=== PATIENT | male | born 1990 | race Caucasian/White ===

== ENCOUNTER 2023-07-18 23:19 | Emergency (ER) | payer MEDICAID | END 2023-07-19 01:15 | disposition home or self-care (01) | LOC: FB.ED 23:19 | DX: S93.411A Sprain of calcaneofibular ligament of right ankle, initial encounter (principal); X58.XXXA Exposure to other specified factors, initial encounter | CPT/HCPCS: 73610-RT; 99283 ==

== ENCOUNTER 2023-07-31 17:40 | Emergency (ER) | payer MEDICARE, MEDICAID ==
[2023-07-31] MEDS ORDERED: Acetaminophen/oxyCODONE 325-5 MG Tab PO ONE (17:41)
[2023-07-31] MEDS ORDERED: Ketorolac 30 MG/ML SDV IM ONE (18:26)
[2023-07-31] MEDS ORDERED: Cyclobenzaprine 10 MG Tab PO ONE (18:26)
[2023-07-31] MEDS ORDERED: Acetaminophen/HYDROcodone 325-5 MG Tab PO ONE (18:27)
[2023-07-31] MEDS ORDERED: Morphine 4 MG/ML VIAL IM ONE (19:21)
== END 2023-07-31 20:40 | disposition home or self-care (01) ==
LOC: FB.ED 17:40
DX: S39.012A Strain of muscle, fascia and tendon of lower back, initial encounter (principal); Z88.8 Allergy status to other drugs, medicaments and biological substances; Z79.899 Other long term (current) drug therapy
CPT/HCPCS: 72131; 96372; 99283; A9270; J1885; J2270

== ENCOUNTER 2024-01-10 17:15 | Emergency (ER) | payer MEDICARE, MEDICAID ==
[2024-01-10] MEDS: Sodium Chloride 0.9% 10 ML Syringe FLUSH PRN (17:44)
[2024-01-10] MEDS: Sodium Chloride 0.9% 1,000 ML IV ONE ×3 (17:44→21:46)
[2024-01-10 17:56] LABS: BLOOD UREA NITROGEN,BUN 15 mg/dL (7-18); CALCIUM 8.9 mg/dL (8.6-10.2); CARBON DIOXIDE,CO2 28 mmol/L (21-32); CHLORIDE,CL 100 mmol/L (100-110); ESTIMATED GFR 103 mL/min (>60); GLUCOSE RANDOM 127 mg/dL (80-116); HEMOGLOBIN 15.6 g/dL (12.9-17.7); POTASSIUM,K 3.4 mmol/L (3.5-5.3); SODIUM,NA 138 mmol/L (135-145)
[2024-01-10 17:56] LABS: BASE EXCESS VENOUS,POC 2 mmol/L (-2 - 3+); PCO2 VENOUS,POC 41 mmHg (41-51); PH VENOUS,POC 7.41 pH Units (7.32-7.43)
[2024-01-10 17:59] LABS: HEMATOCRIT 43.8 % (38.3-50.1); MEAN CORPUSCULAR HEMOGLOBIN 31.9 pg (27.0-33.3); MEAN CORPUSCULAR HGB CONC 35.6 g/dL (28.7-35.3); MEAN CORPUSCULAR VOLUME 89.6 fL (80.8-98.7); PLATELET COUNT,PLT 362 x10(3)uL (117-477); RED BLOOD CELL COUNT 4.89 x10(6)uL (3.90-5.90); RED CELL DISTRIBUTION WIDTH 12.8 % (12.4-15.0); WHITE BLOOD CELL COUNT,WBC 10.4 x10-3/uL (3.2-10.1)
[2024-01-10 18:03] LABS: A/G RATIO 0.9; ALANINE AMINOTRANSFERASE,ALT 18 U/L (12-36); ALBUMIN 3.5 g/dL (3.5-5.2); ALKALINE PHOSPHATASE 77 IU/L (56-112); ASPARTATE AMNIOTRANSFERASE,AST 10 IU/L (5-25); BILIRUBIN TOTAL 0.5 mg/dL (0.1-1.3); MAGNESIUM 1.9 mg/dL (1.8-2.5); PROTEIN TOTAL,TP 7.4 g/dL (6.0-8.0); SALICYLATE 2.8 mg/dL (<2.8)
[2024-01-10 18:11] LABS: C-REACTIVE PROTEIN < 0.50 mg/dL (<0.50); ETHANOL BLOOD MEDICAL < 0.03 % (<0.03); TSH ULTRASENSITIVE 2.37 IU/mL (0.36-3.74)
[2024-01-10 18:13] LABS: EOSINOPHILS PERCENT MAN 1 % (0-5); LYMPHOCYTES PERCENT MAN 25 % (13-37); MONOCYTES PERCENT MAN 8 % (4-12); SEG NEUTROPHILS PERCENT MAN 66 % (46-82)
[2024-01-10 18:16] LABS: ACETAMINOPHEN < 2 ug/mL (<2)
[2024-01-10 19:47] LABS: BILIRUBIN,URINE NEGATIVE (NEGATIVE); GLUCOSE,URINE NORMAL (NORMAL); KETONES,URINE NEGATIVE (NEGATIVE); LEUKOCYTE ESTERASE,URINE NEGATIVE (NEGATIVE); NITRITE,URINE NEGATIVE (NEGATIVE); OCCULT BLOOD,URINE NEGATIVE (NEGATIVE); PH,URINE 6.5 (5.0-6.5); PROTEIN,URINE NEGATIVE (NEGATIVE); UROBILINOGEN,URINE NORMAL (NEGATIVE)
[2024-01-10 19:51] LABS: APPEARANCE,URINE CLEAR (CLEAR); BACTERIA,URINE RARE (NS); COLOR,URINE YELLOW (YELLOW); RBC,URINE NOT SEEN (0-5); SQUAMOUS EPITHELIAL CELLS,UR RARE (NS,R,O); WBC,URINE 0-5 (0-5)
[2024-01-10 19:53] LABS: AMPHETAMINES SCREEN, URINE NEGATIVE (NEGATIVE); BARBITURATE SCREEN,URINE NEGATIVE (NEGATIVE); BENZODIAZEPINES SCREEN,URINE POSITIVE (NEGATIVE); METHADONE SCREEN, URINE NEGATIVE (NEGATIVE); METHAMPHETAMINE SCREEN, URINE NEGATIVE (NEGATIVE); OXYCODONE SCREEN,URINE NEGATIVE (NEGATIVE); THC SCREEN,URINE POSITIVE (NEGATIVE)
[2024-01-10 19:54] LABS: BUPRENORPHINE SCREEN,URINE NEGATIVE (NEGATIVE)
== END 2024-01-10 22:52 | disposition home or self-care (01) ==
LOC: FB.ED 17:15
DX: T42.4X1A Poisoning by benzodiazepines, accidental (unintentional), initial encounter (principal); R40.4 Transient alteration of awareness; E86.0 Dehydration; F17.200 Nicotine dependence, unspecified, uncomplicated; Z88.8 Allergy status to other drugs, medicaments and biological substances
CPT/HCPCS: 36415; 80053; 80143; 80179; 80307; 81001; 83605; 83735; 84443; 85025; 86140; 96360; 96361; 99284-25; J3490; J7030

== ENCOUNTER 2024-05-19 12:29 | Emergency (ER) | payer MEDICARE, MEDICAID ==
[2024-05-19] MEDS: Aspirin 81 MG Tab.Chew PO ONE (13:04)
[2024-05-19 13:21] LABS: BASOPHILS ABSOLUTE AUTO 0.1 x10-3/uL (0.0-0.3); BASOPHILS PERCENT AUTO 1.4 % (0.3-3.8); EOSINOPHILS ABSOLUTE AUTO 0.1 x10-3/uL (0.0-0.6); EOSINOPHILS PERCENT AUTO 0.7 % (0.1-6.8); HEMATOCRIT 45.2 % (38.3-50.1); HEMOGLOBIN 15.3 g/dL (12.9-17.7); LYMPHOCYTES ABSOLUTE AUTO 2.2 x10-3/uL (0.5-4.5); LYMPHOCYTES PERCENT AUTO 24.6 % (15.8-45.3); MEAN CORPUSCULAR HGB CONC 33.9 g/dL (28.7-35.3); MEAN CORPUSCULAR VOLUME 91.4 fL (80.8-98.7); MONOCYTES ABSOLUTE AUTO 0.6 x10-3/uL (0.0-1.2); MONOCYTES PERCENT AUTO 6.3 % (5.5-15.2); NEUTROPHILS ABSOLUTE AUTO 5.9 x10-3/uL (1.7-6.9); PLATELET COUNT,PLT 271 x10(3)uL (117-477); RED BLOOD CELL COUNT 4.95 x10(6)uL (3.90-5.90); WHITE BLOOD CELL COUNT,WBC 8.8 x10-3/uL (3.2-10.1)
[2024-05-19 13:23] LABS: BLOOD UREA NITROGEN,BUN 13 mg/dL (7-18); CALCIUM 9.3 mg/dL (8.6-10.2); CARBON DIOXIDE,CO2 30 mmol/L (21-32); CHLORIDE,CL 103 mmol/L (100-110); ESTIMATED GFR 103 mL/min (>60); GLUCOSE RANDOM 93 mg/dL (80-116); POTASSIUM,K 4.2 mmol/L (3.5-5.3); SODIUM,NA 142 mmol/L (135-145)
[2024-05-19 13:29] LABS: ALANINE AMINOTRANSFERASE,ALT 21 U/L (12-36); ALBUMIN 3.9 g/dL (3.5-5.2); ALKALINE PHOSPHATASE 75 IU/L (56-112); ASPARTATE AMNIOTRANSFERASE,AST 20 IU/L (5-25); BILIRUBIN TOTAL 0.5 mg/dL (0.1-1.3); PROTEIN TOTAL,TP 7.8 g/dL (6.0-8.0)
[2024-05-19 13:36] LABS: PRO B-TYPE NATRIUR PEPT,BNPPRO 40 pg/mL (<=125)
[2024-05-19 14:10] LABS: TROPONIN I < 4.0 pg/mL (4.0-60.3)
[2024-05-19] MEDS: Acetaminophen 500 MG Tab PO ONE (14:27)
[2024-05-19] MEDS: Ibuprofen 400 MG Tab PO ONE (14:28)
== END 2024-05-19 14:40 | disposition home or self-care (01) ==
LOC: FB.ED 12:29
DX: R07.9 Chest pain, unspecified (principal); R06.00 Dyspnea, unspecified; F17.210 Nicotine dependence, cigarettes, uncomplicated; Z88.8 Allergy status to other drugs, medicaments and biological substances
CPT/HCPCS: 36415; 71045; 80053; 83880; 84484; 85025; 85379; 93005; 99285; A9270-GY

== ENCOUNTER 2025-05-17 03:13 | Emergency (ER) | payer MEDICAID, MEDICARE, OTHER ==
[2025-05-17 04:02] LABS: BASOPHILS ABSOLUTE AUTO 0.1 x10-3/uL (0.0-0.3); BASOPHILS PERCENT AUTO 0.7 % (0.3-3.8); EOSINOPHILS ABSOLUTE AUTO 0.0 x10-3/uL (0.0-0.6); EOSINOPHILS PERCENT AUTO 0.5 % (0.1-6.8); LYMPHOCYTES ABSOLUTE AUTO 2.3 x10-3/uL (0.5-4.5); LYMPHOCYTES PERCENT AUTO 22.1 % (15.8-45.3); MEAN PLATELET VOLUME 8.4 fL (6.7-11.0); MONOCYTES ABSOLUTE AUTO 0.9 x10-3/uL (0.0-1.2); MONOCYTES PERCENT AUTO 8.4 % (5.5-15.2); NEUTROPHILS ABSOLUTE AUTO 7.0 x10-3/uL (1.7-6.9); NEUTROPHILS PERCENT AUTO 68.3 % (40.3-71.8); PLATELET COUNT,PLT 287 x10(3)uL (117-477); RED BLOOD CELL COUNT 5.43 x10(6)uL (3.90-5.90); RED CELL DISTRIBUTION WIDTH 13.1 % (12.4-15.0); WHITE BLOOD CELL COUNT,WBC 10.2 x10-3/uL (3.2-10.1)
[2025-05-17 04:07] LABS: BLOOD UREA NITROGEN,BUN 14 mg/dL (7-18); CARBON DIOXIDE,CO2 27 mmol/L (21-32); CHLORIDE,CL 99 mmol/L (100-110); CREATININE 1.2 mg/dL (0.70-1.30); EST CRCL DRUG DOSING (CG) 96.10 mL/min; ESTIMATED GFR 82 mL/min (>60); GLUCOSE RANDOM 104 mg/dL (80-116); POTASSIUM,K 3.6 mmol/L (3.5-5.3); SODIUM,NA 135 mmol/L (135-145)
[2025-05-17 04:12] LABS: A/G RATIO 1.2; ALANINE AMINOTRANSFERASE,ALT 15 U/L (12-36); ASPARTATE AMNIOTRANSFERASE,AST 15 IU/L (5-25); BILIRUBIN TOTAL 1.6 mg/dL (0.1-1.3); ETHANOL BLOOD MEDICAL < 0.03 % (<0.03); PROTEIN TOTAL,TP 8.2 g/dL (6.0-8.0)
[2025-05-17 05:20] LABS: APPEARANCE,URINE CLEAR (CLEAR); GLUCOSE,URINE NORMAL (NORMAL); OCCULT BLOOD,URINE NEGATIVE (NEGATIVE)
[2025-05-17 05:25] LABS: SQUAMOUS EPITHELIAL CELLS,UR RARE (NS,R,O)
[2025-05-17 05:47] LABS: AMPHETAMINES SCREEN, URINE POSITIVE (NEGATIVE); BUPRENORPHINE SCREEN,URINE NEGATIVE (NEGATIVE); METHADONE SCREEN, URINE NEGATIVE (NEGATIVE); METHAMPHETAMINE SCREEN, URINE NEGATIVE (NEGATIVE); OXYCODONE SCREEN,URINE NEGATIVE (NEGATIVE)
== END 2025-05-17 06:17 | disposition home or self-care (01) ==
LOC: FB.ED 03:13
DX: F31.9 Bipolar disorder, unspecified (principal); Z88.8 Allergy status to other drugs, medicaments and biological substances; Z79.899 Other long term (current) drug therapy
CPT/HCPCS: 36415; 80053; 80143; 80179; 80307; 81001; 83605; 85025; 86140; 99284